=== PATIENT | male | born 1950 | race Hispanic/Latino ===

== ENCOUNTER 2021-08-01 15:49 | Emergency (ER) | payer OTHER ==
[2021-08-01 17:27] LABS: #Basophils 0.1 10x3/uL (0.0-0.2); #Eosinphils 0.1 10x3/uL (0.0-0.5); #Monocytes 0.8 10x3/uL (0.0-1.1); #Neutrophils 6.6 10x3/uL (1.5-8.4); %Basophils 0.7 % (0.0-2.0); %Eosinophils 1.2 % (0.0-6.0); %Lymphocytes 16.6 % (18.0-47.0); %Monocytes 8.6 % (0.0-10.0); %Neutrophils 72.2 % (40.0-75.0); Hemoglobin 12.1 g/dL (13.5-17.5); Mean Corpuscular HGB CONC 33.6 g/dL (32.0-36.0); Mean Corpuscular Hemoglobin 33.8 pg (27.0-33.0); Mean Corpuscular Volume 100.6 fl (81.2-95.1); Mean Platelet Volume 10.2 fl (7.4-10.4); Platelet Count 222 10x3/uL (150-450); RBC Distribution Width 14.5 % (11.5-14.5); Red Blood Cell (RBC) Count 3.58 10x6/uL (4.32-5.72); White Blood Cell (WBC) Count 9.1 10x3/uL (3.5-10.5)
[2021-08-01 17:44] LABS: ALT (SGPT) 11 U/L (8-55); AST (SGOT) 11 U/L (5-34); Alkaline Phosphatase 135 U/L (40-110); Anion Gap 18 mmol/L (10-20); BUN (Urea Nitrogen) 33 mg/dL (8.4-25.7); Bilirubin, Total 0.8 mg/dL (0.2-1.2); Calc. Creatinine Clearance 0 mL/min (70-130); Calcium 8.3 mg/dL (7.8-10.44); Carbon Dioxide 19 mmol/L (23-31); Chloride 108 mmol/L (98-107); Globulin 3.6 g/dL (2.4-3.5); Glucose 110 mg/dL (83-110); Potassium 3.9 mmol/L (3.5-5.1); Protein, Total 7.6 g/dL (5.8-8.1); Sodium 141 mmol/L (136-145)
[2021-08-01 18:10] LABS: Bilirubin Neg (Negative); Blood, Urine Negative (Negative); Clarity Clear (Clear); Glucose, Urine (Dipstick) Normal (Negative); Ketone, Urine Negative (Negative); Leukocyte 25 (Negative); Nitrite Negative (Negative); Protein, Urine (Dipstick) 15 mg/dl (Neg-Trace)
[2021-08-01 18:24] LABS: RBC/HPF None Seen HPF (0-3); WBC/HPF 0-3 HPF (0-3)
[2021-08-01 18:25] LABS: Bacteria/HPF Rare-Few HPF (None Seen); Mucous/LPF Rare LPF (<2+); Sperm/HPF 1+ HPF (None Seen); Squamous Epithelial 0-3 HPF (0-3)
[2021-08-01] MEDS ORDERED: Furosemide 40 MG/4 ML VIAL ONE (19:19)
== END 2021-08-01 19:32 ==
LOC: EEVIPCON 15:49 → CSHERS 15:49
DX: N43.3 Hydrocele, unspecified (principal); R06.00 Dyspnea, unspecified; I11.0 Hypertensive heart disease with heart failure; I50.9 Heart failure, unspecified; E78.5 Hyperlipidemia, unspecified; K21.9 Gastro-esophageal reflux disease without esophagitis; M19.90 Unspecified osteoarthritis, unspecified site; I25.2 Old myocardial infarction; I48.91 Unspecified atrial fibrillation; E05.90 Thyrotoxicosis, unspecified without thyrotoxic crisis or storm; Z79.01 Long term (current) use of anticoagulants; Z79.82 Long term (current) use of aspirin; Z79.899 Other long term (current) drug therapy
CPT/HCPCS: 71045; 76870; 80053; 81003; 81015; 83880; 84484; 85025; 93005; 93976; 96374; J1940

== ENCOUNTER 2023-07-08 08:01 | Emergency (ER) | payer OTHER ==
[2023-07-08] MEDS ORDERED: Iopamidol 370 76% 100 ML VIAL ONE (08:50)
[2023-07-08 09:18] LABS: #Eosinphils 0.1 10x3/uL (0.0-0.5); #Monocytes 0.6 10x3/uL (0.0-1.1); #Neutrophils 3.4 10x3/uL (1.5-8.4); %Basophils 0.4 % (0.0-2.0); %Eosinophils 1.9 % (0.0-6.0); %Lymphocytes 12.2 % (18.0-47.0); %Monocytes 12.9 % (0.0-10.0); %Neutrophils 72.4 % (40.0-75.0); Hematocrit 40.6 % (38.8-50.0); Hemoglobin 13.5 g/dL (13.5-17.5); Mean Corpuscular HGB CONC 33.3 g/dL (32.0-36.0); Mean Corpuscular Hemoglobin 31.4 pg (27.0-33.0); Mean Corpuscular Volume 94.4 fl (81.2-95.1); RBC Distribution Width 14.6 % (11.5-14.5); White Blood Cell (WBC) Count 4.7 10x3/uL (3.5-10.5)
[2023-07-08 09:34] LABS: ALT (SGPT) 26 U/L (8-55); AST (SGOT) 31 U/L (5-34); Albumin 3.1 g/dL (3.4-4.8); Alkaline Phosphatase 178 U/L (40-110); Anion Gap 15 mmol/L (10-20); BUN (Urea Nitrogen) 19 mg/dL (8.4-25.7); Bilirubin, Total 1.4 mg/dL (0.2-1.2); Calc. Creatinine Clearance 0 mL/min (70-130); Calcium 8.3 mg/dL (7.8-10.44); Carbon Dioxide 19 mmol/L (23-31); Chloride 112 mmol/L (98-107); Estimated GFR 91; Globulin 3.3 g/dL (2.4-3.5); Glucose 188 mg/dL (83-110); Magnesium 2.2 mg/dL (1.6-2.6); Potassium 3.9 mmol/L (3.5-5.1); Protein, Total 6.4 g/dL (5.8-8.1); Sodium 142 mmol/L (136-145)
[2023-07-08 09:40] LABS: Mean Platelet Volume 11.1 fl (7.4-10.4); Platelet Adequacy Comment Appears Adequate; Platelet Count 129 10x3/uL (150-450); Poikilocytosis SLIGHT = 6-15 cells (100X) (0-5/hpf); Troponin I Less than 0.010 ng/mL (< 0.028)
[2023-07-08 09:47] LABS: D-Dimer Test 1.32 mg/L FEU (0.19-0.50); INR-International Normal Ratio 1.2; PTT 27.3 sec (22.0-33.0)
[2023-07-08 11:16] LABS: Troponin I Less than 0.010 ng/mL (< 0.028)
== END 2023-07-08 11:49 ==
LOC: EEVIPCON 08:01 → CSHERS 08:01
DX: R07.9 Chest pain, unspecified (principal); E78.5 Hyperlipidemia, unspecified; K21.9 Gastro-esophageal reflux disease without esophagitis; I48.91 Unspecified atrial fibrillation; E03.9 Hypothyroidism, unspecified; I11.0 Hypertensive heart disease with heart failure; I50.9 Heart failure, unspecified
CPT/HCPCS: 71045; 71275; 80053; 83735; 84484; 85025; 85379; 85610; 85730; 93005; 93010; Q9967

== ENCOUNTER 2023-07-29 08:15 | Emergency (ER) | payer OTHER ==
[2023-07-29] MEDS ORDERED: dilTIAZem 25 MG/5 ML VIAL ONE ×2 (08:52→09:41)
[2023-07-29 09:06] LABS: Hematocrit 44.6 % (38.8-50.0); MDiff Complete? YES; Mean Corpuscular HGB CONC 33.6 g/dL (32.0-36.0); Mean Corpuscular Hemoglobin 30.9 pg (27.0-33.0); Platelet Count 89 10x3/uL (150-450); RBC Distribution Width 14.7 % (11.5-14.5); Red Blood Cell (RBC) Count 4.85 10x6/uL (4.32-5.72); White Blood Cell (WBC) Count 13.8 10x3/uL (3.5-10.5)
[2023-07-29 09:10] LABS: INR-International Normal Ratio 1.3; PTT 27.9 sec (22.0-33.0)
[2023-07-29 09:12] LABS: ALT (SGPT) 27 U/L (8-55); AST (SGOT) 38 U/L (5-34); Albumin 3.1 g/dL (3.4-4.8); Alkaline Phosphatase 164 U/L (40-110); Anion Gap 18 mmol/L (10-20); BUN (Urea Nitrogen) 25 mg/dL (8.4-25.7); Bilirubin, Total 2.3 mg/dL (0.2-1.2); Calc. Creatinine Clearance 0 mL/min (70-130); Calcium 8.1 mg/dL (7.8-10.44); Carbon Dioxide 16 mmol/L (23-31); Chloride 107 mmol/L (98-107); Estimated GFR 66; Globulin 3.6 g/dL (2.4-3.5); Glucose 100 mg/dL (83-110); Potassium 3.8 mmol/L (3.5-5.1); Protein, Total 6.7 g/dL (5.8-8.1); Sodium 137 mmol/L (136-145)
[2023-07-29 09:16] LABS: Troponin I 0.062 ng/mL (< 0.028)
[2023-07-29 09:31] LABS: Band 6 % (5-11); Lymphocytes 1 % (21-51); Metamyelocyte 1 % (0-0); Neutrophil 92 % (42-75)
[2023-07-29 09:32] LABS: Platelet Adequacy Comment Appears Decreased; RBC Morph Comment Within Normal Limits; Vacuoles SLIGHT
[2023-07-29] MEDS ORDERED: dilTIAZem 60 MG TAB PO SCH (09:45)
[2023-07-29 11:33] LABS: Troponin I 0.089 ng/mL (< 0.028)
[2023-07-29] MEDS ORDERED: Aspirin Chewable 81 MG TAB ONE (14:18)
== END 2023-07-29 19:48 | disposition short-term general hospital (02) ==
LOC: CSHERS 08:15 → EEVIPCON 08:15 → CSHERS 19:48
DX: I48.91 Unspecified atrial fibrillation (principal); R07.9 Chest pain, unspecified; R79.89 Other specified abnormal findings of blood chemistry; K21.9 Gastro-esophageal reflux disease without esophagitis; I11.0 Hypertensive heart disease with heart failure; I50.9 Heart failure, unspecified; E78.5 Hyperlipidemia, unspecified; Z79.01 Long term (current) use of anticoagulants; Z79.899 Other long term (current) drug therapy; Z79.82 Long term (current) use of aspirin
CPT/HCPCS: 36415; 70450; 71045; 80053; 84484; 85025; 85610; 85730; 93005; 96372; 96374; 96376; J1650

== ENCOUNTER 2023-08-19 06:58 | Emergency (ER) | payer OTHER ==
[2023-08-19 07:26] LABS: #Monocytes 0.8 10x3/uL (0.0-1.1); #Neutrophils 4.2 10x3/uL (1.5-8.4); %Basophils 0.5 % (0.0-2.0); %Eosinophils 0.3 % (0.0-6.0); %Lymphocytes 21.6 % (18.0-47.0); %Monocytes 11.9 % (0.0-10.0); %Neutrophils 65.2 % (40.0-75.0); Hematocrit 25.9 % (38.8-50.0); Hemoglobin 8.8 g/dL (13.5-17.5); Mean Corpuscular Hemoglobin 32.2 pg (27.0-33.0); Mean Corpuscular Volume 94.9 fl (81.2-95.1); Mean Platelet Volume 11.4 fl (7.4-10.4); Platelet Count 176 10x3/uL (150-450); RBC Distribution Width 16.9 % (11.5-14.5); Red Blood Cell (RBC) Count 2.73 10x6/uL (4.32-5.72); White Blood Cell (WBC) Count 6.4 10x3/uL (3.5-10.5)
[2023-08-19 07:40] LABS: ALT (SGPT) 16 U/L (8-55); AST (SGOT) 20 U/L (5-34); Albumin 2.9 g/dL (3.4-4.8); Alkaline Phosphatase 101 U/L (40-110); Anion Gap 15 mmol/L (10-20); BUN (Urea Nitrogen) 74 mg/dL (8.4-25.7); Bilirubin, Total 1.5 mg/dL (0.2-1.2); Calc. Creatinine Clearance 0 mL/min (70-130); Calcium 8.2 mg/dL (7.8-10.44); Carbon Dioxide 20 mmol/L (23-31); Chloride 114 mmol/L (98-107); Estimated GFR 57; Globulin 2.9 g/dL (2.4-3.5); Glucose 141 mg/dL (83-110); Magnesium 2.4 mg/dL (1.6-2.6); Potassium 4.4 mmol/L (3.5-5.1); Protein, Total 5.8 g/dL (5.8-8.1); Sodium 145 mmol/L (136-145); Troponin I 0.024 ng/mL (< 0.028)
[2023-08-19 07:43] LABS: INR-International Normal Ratio 1.4; PTT 27.1 sec (22.0-33.0); Prothrombin Time 14.6 sec (9.5-12.1)
[2023-08-19 11:09] LABS: Free T4 (Free Thyroxine) 1.07 ng/dL (0.70-1.48)
== END 2023-08-19 12:56 | disposition short-term general hospital (02) ==
LOC: EEVIPCON 06:58 → CSHERS 06:58
DX: I48.20 Chronic atrial fibrillation, unspecified (principal); I13.0 Hypertensive heart and chronic kidney disease with heart failure and stage 1 through stage 4 chronic kidney disease, or unspecified chronic kidney disease; N18.9 Chronic kidney disease, unspecified; D63.1 Anemia in chronic kidney disease; E05.90 Thyrotoxicosis, unspecified without thyrotoxic crisis or storm; R79.89 Other specified abnormal findings of blood chemistry; K21.9 Gastro-esophageal reflux disease without esophagitis; E78.5 Hyperlipidemia, unspecified; Z79.899 Other long term (current) drug therapy; Z79.84 Long term (current) use of oral hypoglycemic drugs; Z79.01 Long term (current) use of anticoagulants
CPT/HCPCS: 71045; 80053; 82274; 83735; 83880; 84439; 84443; 84481; 84484; 85025; 85610; 85730; 93005; 96374